=== PATIENT | female | born 2000 | race Caucasian/White ===

== ENCOUNTER 2025-01-03 15:54 | Outpatient (CLI) | payer OTHER, SELFPAY ==
--- NOTE | 2025-01-03 15:55 | US_ITS ---
PROCEDURE: US TRANSVAGINAL CLINICAL INDICATION: irregular menstrual bleeding COMPARISON: No exams were available for comparison FINDINGS: Transvaginal and transabdominal sonographic images of the pelvis were obtained. UTERUS: 5.7 cm x 4.5cmx 3.7 cm anteverted and anteflexed with a combined endometrial thickness of 4.2mm. There are 2 small nabothian cysts in the cervix measuring up to 6.5 mm. LEFT OVARY: Not visualized RIGHT OVARY: Not visualized Both ovaries are not seen. There is no fluid in the cul-de-sac. IMPRESSION: 1. Anteverted and anteflexed uterus small in size and normal in shape. The endometrium is thin measuring 4.2 mm. 2. The ovaries were not visualized and we attempted to see them transvaginally and trans abdominally. 3. No fluid in the cul-de-sac. Dictated by: Naveed Fallon MD 01/03/2025 16:45 Naveed Fallon MD in [place] 01/03/2025 16:45
== END 2025-01-03 23:59 | disposition home or self-care (01) ==
LOC: RAD 15:55
PROVIDERS: PCP Nurse Practitioner Obstetrics & Gynecology; Visit Provider Nurse Practitioner Obstetrics & Gynecology
DX: N92.6 Irregular menstruation, unspecified (principal)
CPT/HCPCS: 76830

== ENCOUNTER 2025-01-05 10:55 | Outpatient (CLI) | payer OTHER, SELFPAY ==
[2025-01-05 13:29] LABS: Coronavirus 19, PCR Not Detected (NotDetected); Human Rhinovirus Not Detected (NotDetected); Influenza A, PCR Not Detected (NotDetected); Influenza B, PCR Not Detected (NotDetected); Respiratory Syncytial Virus Not Detected (NotDetected)
== END 2025-01-05 23:59 | disposition home or self-care (01) ==
LOC: LAB.DROPOF 01-06 13:04
PROVIDERS: PCP Nurse Practitioner Family; Visit Provider Nurse Practitioner Family
DX: J06.9 Acute upper respiratory infection, unspecified (principal); J02.9 Acute pharyngitis, unspecified
CPT/HCPCS: 87631

== ENCOUNTER 2025-03-09 14:30 | Outpatient (CLI) | payer OTHER, SELFPAY | END 2025-03-09 23:59 | disposition home or self-care (01) | LOC: LAB.DROPOF 03-10 09:08 | PROVIDERS: PCP Nurse Practitioner Obstetrics & Gynecology; Visit Provider Nurse Practitioner Obstetrics & Gynecology | DX: N76.89 Other specified inflammation of vagina and vulva (principal) | CPT/HCPCS: 87070; 87077; 87186; 87205 ==

== ENCOUNTER 2025-07-05 11:07 | Outpatient (CLI) | payer OTHER, SELFPAY ==
--- OUTSIDE RECORDS SUMMARY | 2025-07-05 11:10 | XMS_ITS | Clinical Summary ---
Author Organization [facility] Address [address] [place] [address] Care Team Providers Care Acoustical Installer Name Role Phone Jalil Mtz DO Primary Care Provider [phone] Allergies Active Allergy Reactions Criticality Noted Date Comments Cephalexin Swelling,Unknown - P atient states they do not know rxn details High 11/19/2017 Penicillins Rash,Unknown - Patie nt states they do not know rxn details Low 09/18/2017 Medications albuterol (Ventolin HFA) 108 (90 Base) MCG/ACT inhaler 10/24/2017 Act pamela clindamycin (Cleocin) 300 MG capsule TAKE 1 CAPSULE ORAL ROUTE 4 TIMES PER DAY FOR 7 DAYS 07/19/2024 Active Ferrous Sulfate (IRON PO) Take 1 tablet by mouth 1 (one) time each day. Active metoclopramide (Reglan) 10 MG tablet 09/30/2017 Active raNITIdine (Zantac) 150 MG tablet 11/19/2017 Active ondansetron (Zofran) 8 MG tablet take 1 tab every 8 hrs as needed 09/26/2017 Active ondansetron (Zofran) 4 MG tablet Take by mouth every 8 (eight) hours if needed. Active Buprenorphine HCl-Naloxone HCl (Suboxone) 8-[address] 1 Film (8 mg) under the tongue 1 (one) time. Active QUEtiapine (SEROquel) 50 MG tablet Take 1 tablet (50 mg) by mouth every night. Active mirtazapine (Remeron) 45 MG tablet Take 1 tablet (45 mg) by mouth every night. Active busPIRone (Buspar) 30 MG tablet Take 1 tablet (30 mg) by mouth 2 (two) times a day. Active predniSONE (Deltasone) 2.5 MG tablet Take 1 tablet (2.5 mg) by mouth 1 (one) time each day. Active gabapentin (Neurontin) 400 MG capsule Take 1 capsule (400 mg) by mouth 3 (three) times a day. Active Active Problems Problem Noted Date Diagnosed Date Obesity (BMI 35.0-39.9 without comorbidity) 07/25 Severe obesity (BMI 35.0-39.9) with comorbidity 08/06/2024 Family History Medical History Relation Name Comments Valvular heart disease Brother Cardiac disorder Other Relation Name Status Comments Brother Other Social History Tobacco Use Types Packs/Day Years Used Date Smoking Tobacco: Former Cigarettes Smokeless Tobacco: Never Alcohol Use Standard Drinks/Week Comments Not Currently 0 (1 standard drink = 0.6 oz pur e alcohol) PHQ-2 Answer Date Recorded Patient Health Questionnaire-2 Score 0 07/27/2024 Comments Unknown Sex and Gender Information Value Date Recorded Sex Assigned at Not on file Legal Sex Female 6:40 PM EDT Gender Identity Not on file Sexual Orientation Not on file Last Filed Vital Signs Vital Sign Reading Time Taken Comments Blood Pressure 113/75 07/27/2024 10:56 AM EDT Pulse 76 07/27/2024 10:56 AM EDT Temperature 36.6 C (97.9 F) 07/27/2024 10:56 AM EDT Respiratory Rate - - Oxygen Saturation 99% 07/27/2024 10:56 AM EDT Inhaled Oxygen Concentration - - Weight 95.3 kg (210 lb) 07/27/2024 10:56 AM EDT Height 157.5 cm (5' 2 ) 07/27/2024 10:56 AM EDT Body Mass Index 38.41 07/27/2024 10:56 AM EDT Plan of Treatment Health Maintenance Due Date Last Done Comments [facility]-/Child/Adol SDOH Screenings 1999 [id number] Vaccine (#1) 2004 [facility]-DTaP,Tdap,and Td Vaccines (6 - Tdap) 07/15/2015 07/14/2015, 04/18/2010, 09/18/2004, Additional history exists [facility]- SDOH Screenings 2017 [facility]-Adult SDOH Screenings 2017 [facility]Y-Zoster Vaccines (1 of 2) 2018 01/13/2012, 11/07/2001 UKY-Pap Smear 2020 [facility]-Influenza Vaccine (#1) 2025 08/14/2015, [facility]-Depression Screening 07/27/2025 07/27/2024 UKY-Hepatitis B Vaccines Completed 000, 1999, 1999 [facility]-HIB Vaccines Aged Out 02/25/2000, 01/21/2000 N o longer eligible based on patient's age to complete this topic [facility]-IPV Vaccines Completed 09/18/2004, , 1999, Additional history exists HPV Vaccines Completed 08/15/2011, 02/23, 04/18/2010 [facility]-Varicella Vaccines Completed 01/13/2012, 2000 [facility]-Hepatitis A Vaccines Completed 12/28/2014, 12/26 [facility]-HIV Screening Completed 09/26/2017 [facility]-Hepatitis C Screening Completed 09/26/2017 [facility]-Obesity Intervention Completed 024, 07/27/2024, 07/27/2024 [facility]Y-Pneumococcal Vaccine: Pediatrics (0 to 5 Years) and At-Risk Patients (6 to 49 Years) Aged Out No longer eligible based on patient's age to complete this topic [facility]Y-Rotavirus Vaccines Aged Out No lo nger eligible based on patient's age to complete this topic Procedures Procedure Name Priority Date/Time Associated Diagnosis Comments HEPATITIS C ANTIBODY W/REFLEX TO HCV QUANT PCR Routine 09/26/2017 10:24 AM EDT HIV 1/2 ANTIBODY/ANTIGEN SCREEN WITH REFLEX TO HIV I/II DIFFERENTIATION Routine 09/26/2017 10:24 AM EDT from Last 3 Months or Most Recently Relevant to Health Maintenance Results * HIV 1 & 2 Antibody/Antigen Screen (09/26/2017 10:24 AM EDT) HIV 1 Result NONREACTIVE Screening for HIV 1 and 2 antibodies is NONREACTIVE. No confirmatory testing is required. [employer] 09/26/2017 10:2 4 AM EDT 09/26/2017 1:10 PM EDT us Suhail De La Cruz MD LAB BLOOD ORDERABLES Final Res ult [facility]QUEST * Hepatitis C Antibody (09/26/2017 10:24 AM EDT) Hepatitis C Antibody NEGATIVE Reference Range: Negative [facility] 09/26/2017 10:2 4 AM EDT 09/26/2017 1:10 PM EDT us Suhail De La Cruz MD LAB BLOOD ORDERABLES Final Res ult SUNQUEST from Last 3 Months or Most Recently Relevant to Health Maintenance [facility] Care Teams Acoustical Installer Relationship Specialty Start Date End Date Jalil Mtz DO [address] [place], [place] [id number] PCP - General 04/06/21
== END 2025-07-05 23:59 | disposition home or self-care (01) ==
LOC: LAB 11:09
PROVIDERS: PCP Nurse Practitioner Family; Visit Provider Nurse Practitioner Obstetrics & Gynecology
DX: Z34.90 Encounter for supervision of normal pregnancy, unspecified, unspecified trimester (principal); Z3A.00 Weeks of gestation of pregnancy not specified
CPT/HCPCS: 36415; 84144; 84702

== ENCOUNTER 2025-07-28 10:08 | Outpatient (CLI) | payer OTHER, SELFPAY ==
--- OUTSIDE RECORDS SUMMARY | 2025-07-29 11:20 | XMS_ITS | Clinical Summary ---
Author Organization [facility] Address [address] [place] [address] Care Team Providers Care Shelter Director Name Role Phone Jalil Mtz DO Primary Care Provider [phone] Allergies Active Allergy Reactions Criticality Noted Date [...] Last Done Comments [facility]-/Child/Adol SDOH Screenings 1999 [id number] Vaccine (#1) 2004 [facility]-DTaP,Tdap,and Td Vaccines (6 [...] is NONREACTIVE. No confirmatory testing is required. [facility] 09/26/2017 10:2 4 AM EDT 09/26/2017 1:10 [...] Recently Relevant to Health Maintenance [facility] Care Teams Shelter Director Relationship Specialty Start Date End Date Jalil Mtz DO [address] [place], [place] [phone] PCP - General 04/06/21
[2025-08-01 21:08] LABS: Neisseria gonorrhoeae, NAA Negative (Negative)
== END 2025-07-28 23:59 | disposition home or self-care (01) ==
LOC: LAB.DROPOF 07-29 11:18
PROVIDERS: PCP Obstetrics & Gynecology; Visit Provider Obstetrics & Gynecology
DX: Z34.90 Encounter for supervision of normal pregnancy, unspecified, unspecified trimester (principal)
CPT/HCPCS: 87086; 87491; 87591

== ENCOUNTER 2025-08-24 15:36 | Outpatient (CLI) | payer OTHER, SELFPAY ==
--- OUTSIDE RECORDS SUMMARY | 2025-08-24 15:38 | XMS_ITS | Clinical Summary ---
Author Organization [facility] Address [address] [address] Care Team Providers Care Pillowcase Cutter Name Role Phone Jalil Mtz DO Primary Care Provider [phone] Allergies Active Allergy Reactions Criticality Noted Date [...] Last Done Comments [facility]-/Child/Adol SDOH Screenings 1999 [id number] Vaccine (#1) 2004 [facility]-DTaP,Tdap,and Td Vaccines (6 [...] is NONREACTIVE. No confirmatory testing is required. [employer] 09/26/2017 10:2 4 AM EDT 09/26/2017 1:10 [...] Recently Relevant to Health Maintenance [facility] Care Teams Pillowcase Cutter Relationship Specialty Start Date End Date Jalil Mtz DO [address] [place], [place] [phone] PCP - General 04/06/21
[2025-08-24 16:19] LABS: Hematocrit 37.7 % (37.0-47.0); Hemoglobin 13.3 g/dL (12.2-16.2); Immature Granulocytes % 0.3 %; Mean Corpuscular HGB Conc 35.3 g/dL (31.8-35.4); Mean Corpuscular Hemoglobin 29.3 pg (27.0-31.2); Mean Corpuscular Volume 83.0 fl (81-99); Nucleated Red Blood Cells % 0 %; Platelet Count 238 K/mm3 (142-424); Red Blood Count 4.54 M/mm3 (4.20-5.40); Red Cell Distribution Width-SD 37.4 fL; White Blood Count 13.6 K/mm3 (4.8-10.8)
[2025-08-24 18:10] LABS: Hepatitis C Ab Qual. W/ RFX REACTIVE (Negative)
[2025-08-25 14:31] LABS: RPR W/RFX Titers Nonreactive (Nonreactive)
[2025-08-26 08:30] LABS: Hepatitis B Surface Antigen Negative (Negative)
[2025-08-26 09:14] LABS: Rubella Antibodies, IgG <0.90 index (Immune >0.99)
== END 2025-08-24 23:59 | disposition home or self-care (01) ==
PROVIDERS: PCP Nurse Practitioner Family; Visit Provider Obstetrics & Gynecology
DX: Z34.90 Encounter for supervision of normal pregnancy, unspecified, unspecified trimester (principal); Z3A.00 Weeks of gestation of pregnancy not specified
CPT/HCPCS: 36415; 85025; 86592; 86762; 86803; 86850; 87340; 87389; 87522

== ENCOUNTER 2025-10-05 15:03 | Outpatient (CLI) | payer OTHER, SELFPAY ==
[2025-10-05 13:54] LABS: Coronavirus 19, PCR Not Detected (NotDetected); Influenza A, PCR Not Detected (NotDetected); Influenza B, PCR Not Detected (NotDetected)
--- OUTSIDE RECORDS SUMMARY | 2025-10-05 15:05 | XMS_ITS | Clinical Summary ---
Author Organization [facility] Address [address] [place] [address] Care Team Providers Care Housekeeping Attendant Name Role Phone Jalil Mtz DO Primary Care Provider [phone] Allergies Active Allergy Reactions Criticality Noted Date [...] Last Done Comments [facility]-/Child/Adol SDOH Screenings 1999 [id number] Vaccine (#1) 2004 [facility]-DTaP,Tdap,and Td Vaccines (6 [...] is NONREACTIVE. No confirmatory testing is required. [facility] 09/26/2017 10:2 4 AM EDT 09/26/2017 1:10 [...] Recently Relevant to Health Maintenance [facility] Care Teams Housekeeping Attendant Relationship Specialty Start Date End Date Jalil Mtz DO [address] [place], [place] [phone] PCP - General 04/06/21
== END 2025-10-05 23:59 | disposition home or self-care (01) ==
LOC: LAB.DROPOF 15:03
PROVIDERS: PCP Nurse Practitioner Family; Visit Provider Nurse Practitioner Family
DX: J02.9 Acute pharyngitis, unspecified (principal); R05.1 Acute cough
CPT/HCPCS: 87631

== ENCOUNTER 2025-10-17 10:25 | Outpatient (CLI) | payer OTHER, SELFPAY ==
--- NOTE | 2025-10-17 10:30 | US_ITS ---
PROCEDURE: US OB /MATERNAL DETAIL CLINICAL INDICATION: 20 week anatomy COMPARISON: No exams were available for comparison FINDINGS: Transabdominal sonographic images of the pelvis were obtained. From her established due date she is 20 weeks 1 day. Single viable intrauterine gestation. Cephalic position. Placenta: Posteriorplacenta grade 1. There is an average amount of fluid. The cervix appears satisfactory. Closed and measuring 3.20 cm in length. Complete survey performed and was unremarkable on the submitted images as in PACS. No discrete anomalies identified on survey imaging by technologist. Active fetus. Three-vessel cord with satisfactory umbilical cord insertion. 4- chamber heart noted. [place], the rest of the cardiac scan was incomplete due to position. Survey of brain & ventricles Unremarkable. Cerebellum, thalamus, choroid plexus, cisterna magna appear normal. Face and neck survey unremarkable. Profile was not well visualized. Nasion, lips and nose appeared normal. Diaphragm and chest views unremarkable. Abdomen: Both kidneys noted and unremarkable. Stomach and bladder noted and satisfactory. Spine: Survey of the spine satisfactory with no anomalies identified nor imaged. Cervical, thoracic, lower spine appear normal. Both arms and legs noted. Amniotic Fluid: Adequate. MVP 4.16 cm. Measurements: Average ultrasound age 21weeks. Estimated due date by ultrasound age 0402/27/2026. Estimated weight 389g BPD = 20weeks 5days HC = 20weeks 5days AC = 20weeks 6days FL = 21weeks 2days Growth Percentile= 87 Heart Rate = 155bpm Cerebellum = 20weeks 3days Humerus = 21weeks 6days HC/AC is 1.16 FL/BPD is 0.74 FL/AC is 0.23 IMPRESSION: 1. Viable fetus in the cephalic presentation with a posterior placenta grade 1. 2. The fluid is within normal limits with an MVP 4.16 cm. 3. Anatomical scan was difficult secondary to the patient's body habitus. Cardiac views and profile were not well visualized. Suggest the patient returns in 2-3 weeks for completion of the scan. 4. biometry is consistent with the dates. Dictated by: Naveed Fallon MD 10/17/2025 14:21 Naveed Fallon MD in [place] 10/17/2025 14:21
--- OUTSIDE RECORDS SUMMARY | 2025-10-17 10:47 | XMS_ITS | Clinical Summary ---
Author Organization [facility] Address [address] [place] [address] Care Team Providers Care Poultry Dressing Worker Name Role Phone Jalil Mtz DO Primary Care Provider [phone] Allergies Active Allergy Reactions Criticality Noted Date [...] Last Done Comments [facility]-/Child/Adol SDOH Screenings 1999 [id number] Vaccine (#1) 2004 [facility]-DTaP,Tdap,and Td Vaccines (6 [...] is NONREACTIVE. No confirmatory testing is required. [employer] 09/26/2017 10:2 4 AM EDT 09/26/2017 1:10 [...] Recently Relevant to Health Maintenance Insurance [facility] Care Teams Poultry Dressing Worker Relationship Specialty Start Date End Date Jalil Mtz DO [address] [place], [place] [phone] PCP - General 04/06/21
== END 2025-10-17 23:59 | disposition home or self-care (01) ==
LOC: RAD 10:25
PROVIDERS: PCP Nurse Practitioner Family; Visit Provider Obstetrics & Gynecology
DX: O99.322 Drug use complicating pregnancy, second trimester (principal); O26.892 Other specified pregnancy related conditions, second trimester; F11.20 Opioid dependence, uncomplicated; Z14.1 Cystic fibrosis carrier; Z28.39 Other underimmunization status; Z67.91 Unspecified blood type, Rh negative; Z3A.20 20 weeks gestation of pregnancy
CPT/HCPCS: 76811

== ENCOUNTER 2025-10-31 10:31 | Outpatient (CLI) | payer OTHER, SELFPAY ==
--- NOTE | 2025-10-31 10:45 | US_ITS ---
PROCEDURE: US OB FOLLOW UP CLINICAL INDICATION: Repeat heart views COMPARISON: US US OB /MATERNAL DETAIL from 10/17/2025 FINDINGS: Transabdominal sonographic images of the pelvis were obtained. The following parameters are obtained: From her established due date she is 22weeks 1day Viable fetus in the cephalic presentation with a posterior placenta grade 1. The cervix measures 3.1 cm in length. heart rate: 136bpm bpm. Amniotic fluid: MVP 4.51 cm No obvious anomalies evident. profile seen, stomach, kidneys, three-vessel cord, four chamber heart appear normal. cardiac scan: LVOT, RVOT, three-vessel view, four-chamber heart appear normal. IMPRESSION: 1. Viable fetus in the cephalic presentation with a posterior placenta grade 1. 2. The fluid is within normal limits with an MVP 4.51 cm. 3. Complete cardiac views as well as profile view were seen today and appear normal. 4. The rest of the limited anatomical scan appears normal. Dictated by: Naveed Fallon MD 10/31/2025 14:30 Naveed Fallon MD in [place] 10/31/2025 14:30
== END 2025-10-31 23:59 | disposition home or self-care (01) ==
LOC: RAD 10:31
PROVIDERS: PCP Nurse Practitioner Family; Visit Provider Obstetrics & Gynecology
DX: O26.892 Other specified pregnancy related conditions, second trimester (principal); O99.212 Obesity complicating pregnancy, second trimester; O99.322 Drug use complicating pregnancy, second trimester; F11.20 Opioid dependence, uncomplicated; E66.9 Obesity, unspecified; Z67.91 Unspecified blood type, Rh negative; Z3A.22 22 weeks gestation of pregnancy
CPT/HCPCS: 76816